=== PATIENT | female | born 2005 | race Caucasian/White ===

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

== ENCOUNTER 2025-01-10 22:08 | Emergency (ER) | payer MEDICAID | END 2025-01-10 22:48 | disposition home or self-care (01) | LOC: FB.ED 22:08 | DX: O9A.212 Injury, poisoning and certain other consequences of external causes complicating pregnancy, second trimester (principal); S13.4XXA Sprain of ligaments of cervical spine, initial encounter; Z3A.18 18 weeks gestation of pregnancy; X58.XXXA Exposure to other specified factors, initial encounter; Y93.89 Activity, other specified | CPT/HCPCS: 99283 ==